=== PATIENT | female | born 1950 | race Caucasian/White ===

== ENCOUNTER 2017-06-24 20:03 | Inpatient (IN) | payer OTHER ==
[~2017-06-24] VITALS: Ht 165.1 cm; Wt 66.1 kg
[2017-06-24 20:20] LABS: BASOPHIL COUNT 0.1 K/uL (0-0.1); EOSINOPHIL (%) 1.4 % (0-5); EOSINOPHIL COUNT 0.1 K/uL (0-0.3); HEMATOCRIT 34.8 % (36.0-46.0); IMMATURE GRANULOCYTE (%) 4.7 % (0.0-0.7); IMMATURE GRANULOCYTE COUNT 0.4 K/uL; INSTRUMENT ABS NEUTROPHIL CT 3.6 K/uL; LYMPHOCYTE COUNT 3.7 K/uL (1.0-2.8); MCH 32.3 PG (29.0-34.0); MCHC 33.9 G/DL (30.0-36.0); MCV 95.3 FL (83-99); MEAN PLAT.VOLUME 9.6 uM^3 (9.5-12.4); MONOCYTE (%) 7.2 % (3-12); MONOCYTE COUNT 0.6 K/uL (0-0.8); NEUTROPHIL (%) 42.7 % (45-76); NEUTROPHIL COUNT 3.6 K/uL (1.8-6.4); PLATELET COUNT 306 K/uL (156-360); RBC DIS.WIDTH-CV 12.5 % (11.8-14.6); RBC DIS.WIDTH-SD 43.6 % (39-53); RED BLOOD COUNT 3.65 M/uL (3.80-5.20); WHITE BLOOD COUNT 8.5 K/uL (4.1-10.2)
[2017-06-24 20:29] LABS: AMYLASE 77 IU/L (1-118); CHLORIDE 108 mEq/L (99-109); POTASSIUM 3.6 mEq/L (3.7-5.4); SODIUM 142 mEq/L (136-147)
[2017-06-24 20:31] LABS: GLUCOSE 128 mg/dL (70-99)
[2017-06-24 20:32] LABS: ANION GAP 15 MEQ/L (2-14)
[2017-06-24 20:34] LABS: SERUM ETHYL ALCOHOL 227 mg/dL
[2017-06-24 20:35] LABS: GFR ESTIMATE (CALCULATED) > 59 mL/min/
[2017-06-24 20:36] LABS: UREA NITROGEN (BUN) 10 mg/dL (9-23)
[2017-06-24 20:38] LABS: LIPASE 38 U/L (1.0-51.0)
[2017-06-25] VITALS (7 sets, daily range): BP systolic 120–160; BP diastolic 73–91
[2017-06-25 07:00] LABS: MCH 33.3 PG (29.0-34.0); MCHC 34.2 G/DL (30.0-36.0); MCV 97.5 FL (83-99); MEAN PLAT.VOLUME 10.2 uM^3 (9.5-12.4); PLATELET COUNT 244 K/uL (156-360); RBC DIS.WIDTH-CV 12.9 % (11.8-14.6); RBC DIS.WIDTH-SD 46.5 % (39-53); RED BLOOD COUNT 3.18 M/uL (3.80-5.20); WHITE BLOOD COUNT 6.5 K/uL (4.1-10.2)
[2017-06-25 07:30] LABS: ALKALINE PHOSPHATASE 90 IU/L (3-129); ANION GAP 9 MEQ/L (2-14); CHLORIDE 110 MEQ/L (99-109); GFR ESTIMATE (CALCULATED) > 59 mL/min/; GLUCOSE 118 mg/dL (70-99); POTASSIUM 3.9 MEQ/L (3.7-5.4); SAMPLE HEMOLYSIS CHECK 0; SAMPLE ICTERIC CHECK 0; SAMPLE LIPEMIA CHECK 0; SODIUM 143 MEQ/L (136-147); TOTAL BILIRUBIN 0.3 MG/DL (0.0-1.0); UREA NITROGEN (BUN) 10 mg/dL (9-23)
[2017-06-25 17:28] LABS: ADD MIUA? NO; BILIRUBIN NEGATIVE; BLOOD NEGATIVE; COLOR YELLOW ((YELLOW)); GLUCOSE (STRIP) NEGATIVE; KETONES 20; LEUKOCYTES NEGATIVE; NITRITE NEGATIVE; PROTEIN (STRIP) NEGATIVE; SPECIFIC GRAVITY 1.018 (1.000-1.030); UROBILINOGEN 0.2 MG/DL (0.2-1.0)
[2017-06-25 17:30] LABS: UCUL ADDED? NO
[2017-06-25 17:34] LABS: POINT-OF-CARE METER ID UU14188577
[2017-06-25 17:44] LABS: ADD MEDTOX COMMENT Y; AMPHETAMINE NEGATIVE (500 ng/mL); BARBITURATES NEGATIVE (200 ng/mL); BENZODIAZEPINES NEGATIVE (150 ng/mL); COCAINE NEGATIVE (150 ng/mL); INTERNAL CONTROLS VALID? YES; METHADONE NEGATIVE (200 ng/mL); METHAMPHETAMINE NEGATIVE (500 ng/mL); OPIATES (MORPHINE) PRESUMPTIVE POSITIVE (100 ng/mL); OXYCODONE PRESUMPTIVE POSITIVE (100 ng/mL); PHENCYCLIDINE NEGATIVE (25 ng/mL); PROPOXYPHENE NEGATIVE (300 ng/mL); THC CANNABINOIDS NEGATIVE (50 ng/mL); TRICYCLIC ANTIDEPRESSANTS NEGATIVE (300 ng/mL)
[2017-06-26 03:25] VITALS: BP 112/66
[2017-06-26 07:36] VITALS: BP 114/67
[2017-06-26 16:06] VITALS: BP 122/82
[2017-06-26 22:55] VITALS: BP 115/57
[2017-06-27 06:47] LABS: MCV 98.9 FL (83-99)
[2017-06-27 07:55] VITALS: BP 117/74
[2017-06-27 12:16] VITALS: BP 116/60
[2017-06-27 15:27] VITALS: BP 123/59
[2017-06-27 23:47] VITALS: BP 132/80
[2017-06-28 04:00] VITALS: BP 141/84
[2017-06-28 07:47] VITALS: BP 147/88
[2017-06-28] MEDS ORDERED: PROMETHAZINE HC25 M1 PO (10:39)
[2017-06-28] MEDS ORDERED: LOVENOX30 MG/0.3 SC (10:39)
[2017-06-28] MEDS ORDERED: CYCLOBENZAPRINE10 MG PO (10:39)
[2017-06-28] MEDS ORDERED: OXYCODONE HCL5 MG PO (10:39)
[2017-06-28] MEDS ORDERED: COLACE100 MG PO (18:01)
[2017-06-28] MEDS ORDERED: PERCOCET 10/1 TABLET PO (18:04)
[2017-06-28] MEDS ORDERED: DULCOLAX5 MG PO (18:09)
== END 2017-06-28 11:54 | DRG 481 ==
LOC: TRA 20:03 → EDOF 22:43 → 3EAST 22:43 → ENRESERV 22:49 → 3EAST 06-25 00:44
PROVIDERS: Emergency Medicine; Orthopaedic Surgery; Surgery
PROC: 0QS636Z Reposition Right Upper Femur with Intramedullary Internal Fixation Device, Percutaneous Approach (ICD-10-PCS; principal; 2017-06-25)
DX: S72.21XA Displaced subtrochanteric fracture of right femur, initial encounter for closed fracture (principal); S32.038A Other fracture of third lumbar vertebra, initial encounter for closed fracture; M48.54XA Collapsed vertebra, not elsewhere classified, thoracic region, initial encounter for fracture; F10.129 Alcohol abuse with intoxication, unspecified; J45.909 Unspecified asthma, uncomplicated; V49.88XA Car occupant (driver) (passenger) injured in other specified transport accidents, initial encounter; Y92.410 Unspecified street and highway as the place of occurrence of the external cause; Y90.8 Blood alcohol level of 240 mg/100 ml or more
CPT/HCPCS: 70450; 71260; 72125; 72129; 72132; 72170; 73552; 74177; 76000; 80048; 80053; 81003; 82150; 82948; 83690; 84999; 85014; 85018; 85025; 85027; 86850; 86900; 86901; 93005; 94799; 97530 GO; 99281; 99285; C1713; G0480; J0131; J0330; J0690; J1100; J1170; J1650; J2270; J2405; J2710; J3010; J7120; S0028

== ENCOUNTER 2017-06-28 11:44 | Inpatient (IN) | payer OTHER ==
[~2017-06-28] VITALS: Ht 165.1 cm; Wt 65.1 kg
[~2017-06-28 11:44] MED LIST: CYCLOBENZAPRINE10 MG PO; LOVENOX30 MG/0.3 SC; OXYCODONE HCL5 MG PO; PROMETHAZINE HC25 M1 PO
[2017-06-28 12:20] VITALS: BP 101/58
[2017-06-28 15:13] VITALS: BP 111/59
[2017-06-28] MEDS ORDERED: COLACE100 MG PO (18:01)
[2017-06-28] MEDS ORDERED: PERCOCET 10/1 TABLET PO (18:04)
[2017-06-28] MEDS ORDERED: DULCOLAX5 MG PO (18:09)
[2017-06-28 23:42] VITALS: BP 109/66
[2017-06-29 05:30] VITALS: BP 96/58
[2017-06-29 07:49] LABS: MCH 33.1 PG (29.0-34.0); MCHC 33.3 G/DL (30.0-36.0); MCV 99.3 FL (83-99); MEAN PLAT.VOLUME 10.1 uM^3 (9.5-12.4); PLATELET COUNT 262 K/uL (156-360); RBC DIS.WIDTH-CV 12.6 % (11.8-14.6); RBC DIS.WIDTH-SD 45.9 % (39-53); RED BLOOD COUNT 3.02 M/uL (3.80-5.20); WHITE BLOOD COUNT 6.8 K/uL (4.1-10.2)
[2017-06-29 08:20] LABS: ALKALINE PHOSPHATASE 88 IU/L (3-129); ANION GAP 9 MEQ/L (2-14); CHLORIDE 105 MEQ/L (99-109); GFR ESTIMATE (CALCULATED) > 59 mL/min/; GLUCOSE 94 mg/dL (70-99); POTASSIUM 4.6 MEQ/L (3.7-5.4); SAMPLE HEMOLYSIS CHECK 0; SAMPLE ICTERIC CHECK 0; SAMPLE LIPEMIA CHECK 0; SODIUM 141 MEQ/L (136-147); UREA NITROGEN (BUN) 8 mg/dL (9-23)
[2017-06-29 08:23] LABS: TOTAL BILIRUBIN 0.7 MG/DL (0.0-1.0)
[2017-06-29 15:12] VITALS: BP 119/73
[2017-06-30 05:52] VITALS: BP 96/60
[2017-06-30 15:15] VITALS: BP 100/56
[2017-07-01 04:07] VITALS: BP 113/58
[2017-07-01 15:03] VITALS: BP 121/68
[2017-07-02 04:41] VITALS: BP 108/61
[2017-07-02 17:17] VITALS: BP 108/60
[2017-07-03 05:25] VITALS: BP 109/61
[2017-07-03 15:11] VITALS: BP 119/64
[2017-07-04 05:49] VITALS: BP 107/61
[2017-07-04 15:43] VITALS: BP 105/66
[2017-07-05 05:18] VITALS: BP 108/60
[2017-07-05 15:29] VITALS: BP 110/59
[2017-07-06 06:52] LABS: HEMATOCRIT 25.5 % (36.0-46.0); MCH 32.4 PG (29.0-34.0); MCHC 32.9 G/DL (30.0-36.0); MCV 98.5 FL (83-99); RBC DIS.WIDTH-CV 12.3 % (11.8-14.6); RBC DIS.WIDTH-SD 44.3 % (39-53); RED BLOOD COUNT 2.59 M/uL (3.80-5.20); WHITE BLOOD COUNT 5.1 K/uL (4.1-10.2)
[2017-07-06 06:54] LABS: PLATELET COUNT 472 K/uL (156-360)
[2017-07-06 07:06] LABS: ANION GAP 8 MEQ/L (2-14); CHLORIDE 105 MEQ/L (99-109); GFR ESTIMATE (CALCULATED) > 59 mL/min/; GLUCOSE 92 mg/dL (70-99); POTASSIUM 4.5 MEQ/L (3.7-5.4); SAMPLE HEMOLYSIS CHECK 0; SAMPLE ICTERIC CHECK 0; SAMPLE LIPEMIA CHECK 0; SODIUM 142 MEQ/L (136-147); UREA NITROGEN (BUN) 9 mg/dL (9-23)
[2017-07-06 07:12] LABS: ALKALINE PHOSPHATASE 237 IU/L (3-129); TOTAL BILIRUBIN 0.5 MG/DL (0.0-1.0)
[2017-07-06 15:11] VITALS: BP 123/65
[2017-07-06] MEDS ORDERED: COLACE100 MG PO (15:31)
[2017-07-06] MEDS ORDERED: VITAMIN D31000 UNI2 PO (15:31)
[2017-07-06] MEDS ORDERED: FAMOTIDINE20 MG PO (15:31)
[2017-07-06] MEDS ORDERED: THERAGRAN1 TABLET PO (15:31)
[2017-07-06] MEDS ORDERED: SENNA PLUS TAB1 EACH PO (15:31)
[2017-07-07 05:24] VITALS: BP 102/65
[2017-07-07 05:35] LABS: HEMATOCRIT 26.6 % (36.0-46.0); MCH 31.9 PG (29.0-34.0); MCHC 32.7 G/DL (30.0-36.0); MCV 97.4 FL (83-99); MEAN PLAT.VOLUME 9.7 uM^3 (9.5-12.4); PLATELET COUNT 500 K/uL (156-360); RBC DIS.WIDTH-CV 12.4 % (11.8-14.6); RBC DIS.WIDTH-SD 43.6 % (39-53); RED BLOOD COUNT 2.73 M/uL (3.80-5.20); WHITE BLOOD COUNT 5.7 K/uL (4.1-10.2)
== END 2017-07-07 12:58 | disposition home health service (06) | DRG 560 ==
LOC: 3WEST 11:44 → ENPENDDIS 07-09
PROVIDERS: Physical Medicine & Rehabilitation Pain Medicine
PROC: F07M0ZZ Range of Motion and Joint Mobility Treatment of Musculoskeletal System - Whole Body (ICD-10-PCS; principal; 2017-06-28)
DX: S72.21XD Displaced subtrochanteric fracture of right femur, subsequent encounter for closed fracture with routine healing (principal); S32.039D Unspecified fracture of third lumbar vertebra, subsequent encounter for fracture with routine healing; R26.2 Difficulty in walking, not elsewhere classified; E83.51 Hypocalcemia; E77.8 Other disorders of glycoprotein metabolism; E87.6 Hypokalemia; D62 Acute posthemorrhagic anemia; R79.89 Other specified abnormal findings of blood chemistry; B00.9 Herpesviral infection, unspecified; M79.672 Pain in left foot; M47.814 Spondylosis without myelopathy or radiculopathy, thoracic region; M51.34 Other intervertebral disc degeneration, thoracic region; M51.36 Other intervertebral disc degeneration, lumbar region; M50.30 Other cervical disc degeneration, unspecified cervical region; M12.9 Arthropathy, unspecified; J45.909 Unspecified asthma, uncomplicated; K59.00 Constipation, unspecified; M54.17 Radiculopathy, lumbosacral region; V43.52XD Car driver injured in collision with other type car in traffic accident, subsequent encounter; Z82.3 Family history of stroke
CPT/HCPCS: 80053; 85027; 97110 GO; 97530 GP; J1650